=== PATIENT | female | born 1990 | race African-American/Black ===

== ENCOUNTER 2019-04-19 18:28 | Emergency (ER) | payer OTHER ==
[~2019-04-19] VITALS: Ht 170.2 cm; Wt 99.8 kg
[2019-04-19] MEDS ORDERED: TESSALON PERLE100 MG PO (21:36)
[2019-04-19] MEDS ORDERED: TAMIFLU75 MG PO (21:36)
[2019-04-19] MEDS ORDERED: PROAIR HFA8.5 GM INH (21:43)
[2019-04-19 21:50] VITALS: BP 147/103
== END 2019-04-19 21:52 | disposition home or self-care (01) ==
LOC: ER 18:28
DX: J11.1 Influenza due to unidentified influenza virus with other respiratory manifestations (principal); J45.909 Unspecified asthma, uncomplicated